=== PATIENT | female | born 1940 | race Caucasian/White ===

== ENCOUNTER → 2016-12-28 | Outpatient (CLI) | payer MEDICARE, BC ==
[~2016-12-28] MED LIST: ACETAMINOPHEN PO; ALBUTEROL17 GM INH; ALEVE220 M1 PO; ALLEGRA180 MG PO; ALLERGY25 MG PO; AMLODIPINE BESY10 MG PO; BUPROPION XL300 MG PO; CALCIUM + D 6001 TA1 PO; CALCIUM500 MG PO; CENTRUM PO; FISH OIL 1,2001 EACH PO; FLOVENT DI50 MCG/DIS IH; FLOVENT7.9 GM INH; HYDROXYZINE HCL25 M1 PO; LORTAB 7.51 TAB PO; NORVASC10 MG PO; OMEGA-3100 MG PO; PRAVACHOL10 MG PO; PROTONIX PO; VITAMIN C500 M1 PO; VITAMIN D1000 UNIT PO; ZESTORETIC 20/11 TAB PO
--- NOTE | ~2016-12-28 | MY29 ---
[facility] A Service of [facility] RADIOLOGY TEXT RESULTS PATIENT: KANG HAMILTON LOCATION: [facility] : 36 UNIT #: [id number] AGE: [address]: Mary Alice Hobbs SEX: F ORDER DR: [id number] [facility] [address] [place], [place] [address] [id number] O MR#: [id number] Acc #: [id number] NAME: KANG HAMILTON. : 1940 SEX: F STUDY DATE/TIME: 12/28/2016 10:36 UNIT: [facility] ROOM: STUDY DESCRIPTION: MY STEWART SCREENING W/ CAD BILAT Attending Physician: Mary Alice Hobbs A.P.R.N. Referring Physician: Mary Alice Hobbs A.P.R.N. Ordering Physician: Mary Alice Hobbs A.P.R.N. Primary Care Physician: Mary Alice Hobbs A.P.R.N. MEDICAL IMAGING REPORT This report is preliminary unless electronic signature is present EXAM Digital screening mammogram 12/28/2016 HISTORY 76-year-old woman, no risk elevation, annual screen. COMPARISON Mammograms date to 09/17/2005 with most recent 12/22/2015. FINDINGS Digital imaging of each breast was completed utilizing screening protocol. Review includes FDA-approved CAD device. Breast parenchyma is predominantly fatty replaced. Slight prominent subareolar parenchymal density is noted bilaterally and appears stable. I see no suspicious microcalcifications. There is no interval occurring breast mass and no architectural distortion. IMPRESSION Negative mammogram. Annual screening recommended. Patients over the age of 40 are entered into a reminder system with target due date for the next mammogram. A result letter will also be sent to the patient. BIRADS: 1, negative. Dictated by... Carlos Painting M.D. [facility] A Service of [facility] RADIOLOGY TEXT RESULTS PATIENT: KANG HAMILTON LOCATION: [facility] : 36 UNIT #: [id number] AGE: [address]: Mary Alice Hobbs SEX: F ORDER DR: THIS IS AN ELECTRONICALLY VERIFIED REPORT Carlos Painting M.D. at 12/28/2016 3:01 PM NEL/yarely TD: 12/28/2016 14:42 JOB #: [id number] MEDICAL IMAGING REPORT Page 1 of 1 COPY
== END | disposition home or self-care (01) ==
LOC: CWCC 09:56
DX: Z12.31 Encounter for screening mammogram for malignant neoplasm of breast (principal)
CPT/HCPCS: G0202